=== PATIENT | male | born 1950 | race Caucasian/White ===

== ENCOUNTER 2017-12-22 08:43 | Day surgery (SDC) | payer MEDICARE, OTHER ==
[2017-12-21 11:17] LABS: HEMATOCRIT 45.3 % (42.0-54.0); HEMOGLOBIN 15.8 g/dL (13.5-17.5); MCH 31.6 pg (26.0-34.0); MCHC 34.9 g/dL (31.0-37.0); MCV 90.6 fL (80.0-100.0); MEAN PLATELET VOLUME 9.5 fL (7.4-10.4); RDW 12.4 % (11.5-14.5); WBC 7.5 10x3/uL (4.8-10.8)
[~2017-12-22] VITALS: Ht 190.5 cm; Wt 93.9 kg
--- NOTE | ~2017-12-22 | OP ---
PATIENT NAME: JANE ERVIN MEDICAL RECORD: [id number] :52 [facility] ADMISSION DATE: SURGEON: LAVINIA OLIVER MD DATE OF OPERATION: 12/22/2017 SURGEON: Lavinia Oliver MD ANESTHESIA: TIVA by Franklin Cool CRNA PREOPERATIVE DIAGNOSIS: Elevated PSA 10.04 with abnormal digital rectal examination with a nodule on the right apex of the prostate. PROCEDURE: Transrectal ultrasound and prostate biopsy. FINDINGS: 48 gram prostate with intraprostatic stones. No hypoechoic areas. SPECIMENS: Prostate biopsy cores. ESTIMATED BLOOD LOSS: None. CLINICAL HISTORY: This is a 67-year-old male, who was found to have an elevated PSA of 10.04. His PSA levels previously were normal. He has no family history of prostate cancer and on digital rectal examination there is a hard nodule on the right apex of the prostate. He comes to have a prostate biopsy performed. He is allergic to penicillin and bee venom. 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 DESCRIPTION OF PROCEDURE: The patient was given IV sedation. He was then placed into dorsal lithotomy position and transrectal ultrasound probe was placed into the rectum. Prostate size measurements were obtained. Prostate size is estimated at 48 grams. Sextant biopsies were then obtained with at least 3 cores from each sextant. Once all the biopsy specimens were obtained, the procedure was terminated. The patient was then awakened and brought back to the preoperative holding area. I will review the pathology with him next week. TRANSINT:[id number] Voice Confirmation ID: [id number] DOCUMENT ID: [id number] LAVINIA OLIVER MD at 1203 CC: [id number] DICTATION DATE: 12/22/17 1021 WAREHOUSE SUPERVISOR: 12/22/17 1105 [facility] [address] [place] [address]
[2017-12-22 07:20] VITALS: BP 145/94; Ht 190.5 cm; Wt 93.9 kg
== END 2017-12-22 11:50 | disposition home or self-care (01) ==
LOC: D.OPS 08:43
PROVIDERS: Anesthesiology
DX: R97.20 Elevated prostate specific antigen [PSA] (principal); N40.2 Nodular prostate without lower urinary tract symptoms; Z01.812 Encounter for preprocedural laboratory examination

== ENCOUNTER → 2018-01-05 08:25 | Outpatient (CLI) | payer MEDICARE, OTHER ==
[2017-12-22 07:20] VITALS: BMI 25.9
== END | disposition home or self-care (01) ==
LOC: D.NM 08:25
DX: C61 Malignant neoplasm of prostate (principal)

== ENCOUNTER → 2018-08-03 14:21 | Outpatient (CLI) | payer MEDICARE, OTHER ==
[2017-12-22 07:20] VITALS: BMI 25.9
== END | disposition home or self-care (01) ==
LOC: D.LAB 14:21
DX: Z98.890 Other specified postprocedural states (principal)